=== PATIENT | male | born 1980 | race Caucasian/White ===

== ENCOUNTER → 2017-02-26 | Outpatient (CLI) | payer OTHER ==
--- NOTE | 2017-02-27 15:17 | CR ---
EXAM DATE: 02/26/17 PATIENT'S AGE: 36 Patient: AMARJIT POTTER Facility: [place], [place] Site . Site : 1980 Study: XRay Knee Left [id number]/27/2017 8:54:12 AM Ordering Physician: Enzo Slater Final Report: Left knee, four views INDICATION: Strain of unspecified muscles and tendons COMPARISON: None. FINDINGS: No visualized fracture. Alignments anatomic. Joint spaces unremarkable. IMPRESSION: 1. NEGATIVE STUDY. NO ACUTE INJURY TO LEFT KNEE. NO JOINT EFFUSION. Dictated by Orlin Abraham MD @ Feb 26 2017 9:29PM (Electronic Signature) Report Signed by Proxy. SANA
== END ==
LOC: MW.CHORTHO 07:41
PROVIDERS: ATTEND Physician Assistant
DX: S86.912A Strain of unspecified muscle(s) and tendon(s) at lower leg level, left leg, initial encounter (principal); I10 Essential (primary) hypertension
CPT/HCPCS: 36415; 73564-26-LT; 73564-LT; 80048; 80061; 93005

== ENCOUNTER 2017-07-08 07:06 | Day surgery (SDC) | payer OTHER ==
[~2017-07-08 07:06] MED LIST: Lactated Ringers 1,000 ML IV SCH; ceFAZolin 2 GM in Premix Bag 1 BAG IV SCH
[2017-07-08] MEDS ORDERED: Lidocaine 1% 20 ML MDV ONE (07:31)
[2017-07-08] MEDS ORDERED: Acetaminophen/HYDROcodone 325-5 MG Tab PO PRN (08:00)
[2017-07-08] MEDS ORDERED: fentaNYL 100 MCG/2 ML SDV ONE (08:04)
[2017-07-08] MEDS ORDERED: Midazolam 1 MG/ML 2 ML SDV ONE (08:04)
[2017-07-08] MEDS ORDERED: Propofol 200 MG/20 ML SDV ONE (08:04)
[2017-07-08] MEDS ORDERED: Lidocaine 2% 5 ML SDV ONE ×2 (08:04→08:06)
[2017-07-08] MEDS ORDERED: Ondansetron 4 MG/2 ML SDV ONE (08:12)
[2017-07-08] MEDS ORDERED: Succinylcholine/Normal Saline 200 MG/10 ML Syringe ONE (08:12)
[2017-07-08] MEDS ORDERED: Ketorolac 30 MG/ML SDV ONE (08:12)
--- NOTE | 2017-07-08 08:33 | PCM.PREANE ---
Preanesthetic Assessment - Procedure Proposed Procedure: Left knee arthroscopy and meniscectomy - Anesthesia/Transfusion/Family Hx Anesthesia History: No Prior Anesthesia Family History of Anesthesia Reaction: No Transfusion History: No Prior Transfusion(s) Intubation History: Unknown - Review of Systems General: Other (obesity; suggested sleep apnea without workup) Pulmonary: No Symptoms Cardiovascular: Other (hypertension treated with lisinopril and HCTZ (recent)) Gastrointestinal: No Symptoms - Physical Assessment NPO Status Date: 07/07/17 NPO Status Time: 21:30 O2 Sat by Pulse Oximetry: 99 Respiratory Rate: 18 Vital Signs: Last Vital Signs Temp 98.8 F 07/08/17 07:15 Pulse 86 07/08/17 07:15 Resp 18 07/08/17 07:15 BP 150/105 H 07/08/17 07:15 Pulse Ox 99 07/08/17 07:15 Height: 6 ft Weight: 307 lb ASA Class: 3 Mental Status: Alert & Oriented x3 Airway Class: Mallampati = 1 Dentition: Reports: Normal Dentition Thyro-Mental Finger Breadths: 3 (bearded) Mouth Opening Finger Breadths: 3 ROM/Head Extension: Full Lungs: Clear to Auscultation, Normal Respiratory Effort Cardiovascular: Regular Rate, Regular Rhythm, No Murmurs - Allergies Allergies/Adverse Reactions: Allergies Allergy/AdvReac Type Severity Reaction Status Date / Time No Known Allergies Allergy Verified 07/07/17 10:28 - Blood Blood Available: No Product(s) Available: None - Anesthesia Plan Pre-Op Medication Ordered: None - Acknowledgements Anesthesia Type Planned: General Anesthesia (LMA vs OET) Pt an Appropriate Candidate for the Planned Anesthesia: Yes Alternatives and Risks of Anesthesia Discussed w Pt/Guardian: Yes Pt/Guardian Understands and Agrees with Anesthesia Plan: Yes PreAnesthesia Questionnaire Other HEENT History: wears contacts Cardiovascular History: Reports: Hypertension Respiratory History: Reports: Other (See Below) Other Respiratory History: undiagnosed sleep apnea Endocrine/Metabolic History: Reports: Obesity/BMI 30+ - SUBSTANCE USE Smoking Status *Q: Never Smoker Recreational Drug Use History: No - HOME MEDS Home Medications: Home Meds Hydrochlorothiazide 12.5 mg PO DAILY 07/07/17 [History] Lisinopril [Prinivil] 20 mg PO DAILY 07/07/17 [History] - CURRENT (IN HOUSE) MEDS Current Meds: Current Medications Hydrocodone Bitart/Acetaminophen ([place] 325-5 Mg) 1 - 2 tab PO Q4H PRN PRN Reason: Pain Cefazolin Sodium/Dextrose 2 gm (/ Premix) 50 mls @ 100 mls/hr IV ONCALL JACINTO Lactated Ringer's (Ringers, Lactated) 1,000 mls @ 100 mls/hr IV ASDIRECTED [facility] Last Admin: 07/08/17 07:19 Dose: 100 mls/hr Discontinued Medications Fentanyl (Sublimaze) Confirm Administered Dose 200 mcg .ROUTE .STK-MED ONE Stop: 07/08/17 08:05 Ketorolac Tromethamine (Toradol) Confirm Administered Dose 60 mg .ROUTE .STK- MED ONE Stop: 07/08/17 08:13 Lidocaine (Xylocaine-Mpf 2%) Confirm Administered Dose 5 ml .ROUTE .STK-MED ONE Stop: 07/08/17 08:05 Lidocaine (Xylocaine-Mpf 2%) Confirm Administered Dose 5 ml .ROUTE .STK-MED ONE Stop: 07/08/17 08:07 Lidocaine HCl (Xylocaine 1%) Confirm Administered Dose 20 ml .ROUTE .STK-MED ONE Stop: 07/08/17 07:32 Midazolam HCl (Versed 1 Mg/Ml) Confirm Administered Dose 2 mg .ROUTE .STK-MED ONE Stop: 07/08/17 08:05 Ondansetron HCl (Zofran) Confirm Administered Dose 4 mg .ROUTE .STK-MED ONE Stop: 07/08/17 08:13 Propofol (Diprivan 20 Ml) Confirm Administered Dose 400 mg .ROUTE .STK-MED ONE Stop: 07/08/17 08:05 Succinylcholine Chloride (Succinylcholine In Ns Pf) Confirm Administered Dose 200 mg .ROUTE .STK-MED ONE Stop: 07/08/17 08:13
[2017-07-08] MEDS ORDERED: fentaNYL 250 MCG/5 ML SDV IVPUSH SCH (08:45)
[2017-07-08] MEDS ORDERED: Labetalol 100 MG/20 ML MDV ONE (09:04)
[2017-07-08] MEDS ORDERED: ePHEDrine 50 MG/ML SDV ONE (09:19)
--- NOTE | 2017-07-08 09:28 | PCM.OPNOTE ---
- General Post-Op/Procedure Note Date of Surgery/Procedure: 07/08/17 Operative Procedure(s): Left knee arthroscopy with PMM Post-Op Diagnosis: L knee medial meniscus tear, DJD left knee Anesthesia Technique: General ET Tube Primary Surgeon: Tashia Cotres Assembly Operator: Ceci Cevallos in mLs: 5 Condition: Good Free Text/Narrative:: tt=15 min #[id number]
--- NOTE | 2017-07-08 10:06 | PCM.POSTAN ---
POST ANESTHESIA ASSESSMENT - MENTAL STATUS Mental Status: Alert, Oriented - RESPIRATORY Respiratory Status: Respiratory Rate WNL, Airway Patent, O2 Saturation Stable - CARDIOVASCULAR CV Status: Pulse Rate WNL, Blood Pressure Stable - GASTROINTESTINAL GI Status: No Symptoms - PAIN Pain Score: 0 - POST OP HYDRATION Hydration Status: Adequate & Stable
--- NOTE | 2017-07-08 10:39 | PCM48HPAN ---
Post Anesthesia Note - EVALUATION WITHIN 48HRS OF ANESTHETIC Vital Signs in Normal Range: Yes Patient Participated in Evaluation: Yes Respiratory Function Stable: Yes Airway Patent: Yes Cardiovascular Function Stable: Yes Hydration Status Stable: Yes Pain Control Satisfactory: Yes Nausea and Vomiting Control Satisfactory: Yes Mental Status Recovered: Yes
--- NOTE | 2017-07-08 14:20 | OR ---
SURGEON: Tashia Cortes MD DATE OF PROCEDURE: 07/08/2017 PREOPERATIVE DIAGNOSIS: Left knee medial meniscus tear. POSTOPERATIVE DIAGNOSES: 1. Left knee medial meniscus tear. 2. Degenerative joint disease, left knee. PROCEDURE: Left knee arthroscopy with partial medial meniscectomy. LEGAL EXECUTIVE: Ceci Cevallos PA-C. ANESTHESIA: General. ESTIMATED BLOOD LOSS: 5 mL. TOURNIQUET TIME: 15 minutes. COMPLICATIONS: None. DVT PROPHYLAXIS: Not indicated. IMPLANTS USED: None. BRIEF HISTORY: Barry is a 36-year-old male, who has had complaint of progressive left knee pain. An MRI did show a tear of the medial meniscus. Due to his lack of response to conservative treatment, I did recommend surgical intervention. The risks and goals of the procedure were discussed with the patient and were documented preoperatively. He agreed to proceed. DESCRIPTION OF PROCEDURE: The patient was properly identified and brought to the operating room. He was transferred from the OR cart and placed on the operating table in supine position. General anesthesia was administered. After adequate anesthesia was obtained, a well-padded tourniquet was applied to the left lower extremity. The left lower extremity was then prepped in standard fashion using ChloraPrep solution. It was then sterilely draped. A time-out was performed to ensure correct site and procedure. Preoperative antibiotics were given. The surgical site had been marked preoperatively. An Esmarch was used to exsanguinate the left lower extremity and the tourniquet was inflated to 250 mmHg. A lateral portal arthrotomy was established. Blunt trocar and cannula were introduced into the suprapatellar pouch. Camera, inflow, and outflow were assembled. No significant synovitis was noted. The patellofemoral joint was visualized. Degenerative changes were noted along the undersurface of the patella. The patella appeared to track centrally. It then extended down the lateral and medial gutter. No loose bodies were identified. I then entered the medial compartment. A medial portal arthrotomy was established. A blunt probe was inserted. He did have a large flap of loose cartilage present along the medial femoral condyle, which did impede visualization. A 4.0 mm shaver was placed into the medial compartment and a medial femoral condyle chondroplasty was performed. 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 No further loose flaps were noted. I then probed the meniscus. He was found to have a small radial tear of the posterior horn of the meniscus. This was resected with a combination of biters and nitin. It was reprobed and found to be stable. The medial tibial plateau showed grade 1 to grade 2 degenerative changes only. I then entered the notch. Both the ACL and PCL were visualized and probed and found to be intact. I then entered the lateral compartment. Minor degenerative fraying was noted along the central portion of the lateral meniscus. The meniscus was probed and found to be stable. He did have evidence of grade 1 chondromalacia along the lateral femoral condyle as well as the lateral tibial plateau. I then re-entered the patellofemoral joint. A chondroplasty of the patella was performed. The cartilage showed evidence of grade 3 chondromalacia diffusely along the undersurface of the patella. Grade 2 chondromalacia was noted diffusely along the trochlear groove. No loose cartilage fragments were noted along the trochlea. Instruments were then removed from the knee. The portal sites were closed with 3-0 nylon. Lidocaine 1% was injected along the portal tracts. Xeroform gauze was placed over the wound and a bulky dressing was applied. Tourniquet was then deflated. He was awakened from his anesthetic and transferred back to the operating room cart. He was brought to recovery room in stable condition. All needle and sponge counts were correct. JESSICA / JACQUELINE /[id number]
== END 2017-07-08 10:45 | disposition home or self-care (01) ==
LOC: MW.SDS 07:06
PROVIDERS: ATTEND Orthopaedic Surgery
DX: S83.242A Other tear of medial meniscus, current injury, left knee, initial encounter (principal); M17.12 Unilateral primary osteoarthritis, left knee; M94.262 Chondromalacia, left knee; E66.9 Obesity, unspecified; I10 Essential (primary) hypertension; Z79.899 Other long term (current) drug therapy; Z68.41 Body mass index [BMI] 40.0-44.9, adult
CPT/HCPCS: 29881; 88304; J0690; J1885; J2250; J2405; J3010; J7120; 01400; J2704

== ENCOUNTER 2018-01-29 10:53 | Emergency (ER) | payer OTHER ==
--- NOTE | 2018-01-29 11:33 | EDM.PDOC ---
ED HPI GENERAL MEDICAL PROBLEM - General Chief Complaint: Lower Extremity Injury/Pain Stated Complaint: RT KNEE HURTS Time Seen by Provider: 01/29/18 10:55 Source of Information: Reports: Patient History Limitations: Reports: No Limitations - History of Present Illness INITIAL COMMENTS - FREE TEXT/NARRATIVE: HISTORY AND PHYSICAL: History of present illness: Patient is a 37-year-old male who presents to the emergency room with complaints of right knee pain. He states yesterday he was walking and slipped on the ice landing on his knee. Since that time he has had increased pain and "feeling like it's coming give out" with weightbearing and ambulation. He denies any previous knee injury or trauma. Denies any numbness or tingling to the affected extremity. He denies hitting his head or any loss of consciousness. Review of systems: As per history of present illness and below otherwise all systems reviewed and negative. Past medical history: As per history of present illness and as reviewed below otherwise noncontributory. Surgical history: As per history of present illness and as reviewed below otherwise noncontributory. Social history: No reported history of drug or alcohol abuse. Family history: As per history of present illness and as reviewed below otherwise noncontributory. Physical exam: General: Well-developed and well-nourished 37-year-old male. Alert and oriented. Nontoxic appearing and in no acute distress. HEENT: Atraumatic, normocephalic, pupils equal and reactive bilaterally, negative for conjunctival pallor or scleral icterus, mucous membranes moist, throat clear, neck supple, nontender, trachea midline. No drooling or trismus noted. No meningeal signs Lungs: Clear to auscultation, breath sounds equal bilaterally, chest nontender. Heart: S1S2, regular rate and rhythm without overt murmur Abdomen: Soft, nondistended, nontender. Negative for masses or hepatosplenomegaly. Negative for costovertebral tenderness. Pelvis: Stable nontender. Genitourinary: Deferred. Rectal: Deferred. Skin: Intact, warm, dry. No soft tissue swelling noted. No lesions or rashes noted. Extremities: Moves all extremities per self without difficulty or deficits. No knee instability noted. Full range of motion with active and passive to the affected extremity. Strong pedal pulse. Capillary refill less than 3 seconds. He is negative for cords or calf pain. Neurovascular unremarkable. Neuro: Awake, alert, oriented. Cranial nerves II through XII unremarkable. Cerebellum unremarkable. Motor and sensory unremarkable throughout. Exam nonfocal. Notes: Get an x-ray of the right knee. Given the patient's symptoms and history it does sound that this may be a tendon/ligament issue which will require orthopedic follow-up. I did share this with the patient and he is agreeable to plan of care. Knee xray shows no fracture or dislocation. There is trace suprapatellar joint fluid. Knee immobilizer and crutches. Encouraged patient to see Orthopedics next week for further evaluation. Patient is agreeable to plan of care. Script for Tramadol #15, NRF. Patient blood pressure remains elevated upon discharge. He states he has been out of his Lisinopril x 2-3 months and hasn't been to his PCP to get it refilled. I encourage the patient to stay and be evaluated and help better control his BP. He declines at this time. Will give him a limited about of his Lisinopril; patient promises to follow up with his PCP next week for BP management. Diagnostics: X-ray Therapeutics: Knee immobilizer, crutches Impression: Right knee injury Plan: 1. Use the knee immobilizer and crutches as directed. Please be non-weight bearing until you follow-up with the orthopedic provider 2. Rest, ice, elevate the affected extremity. You may use Tylenol and/or ibuprofen as needed for pain management. 3. Follow-up with orthopedics next week. Return to the ED as needed and as discussed. Definitive disposition and diagnosis as appropriate pending reevaluation and review of above. Duration: Day(s): Location: Reports: Upper Extremity, Right Right Knee Pain Score (Numeric/FACES): 5 - Related Data Allergies Allergy/AdvReac Type Severity Reaction Status Date / Time No Known Allergies Allergy Verified 01/29/18 11:09 Home Meds: Home Meds . [No Known Home Meds] 01/29/18 [History] Past Medical History - Past Health History Medical/Surgical History: Denies Medical/Surgical History Other HEENT History: wears contacts Cardiovascular History: Reports: Hypertension Respiratory History: Reports: Other (See Below) Other Respiratory History: undiagnosed sleep apnea Endocrine/Metabolic History: Reports: Obesity/BMI 30+ Social & Family History - Tobacco Use Smoking Status *Q: Never Smoker Second Hand Smoke Exposure: No - Caffeine Use Caffeine Use: Reports: None - Recreational Drug Use Recreational Drug Use: No Drug Use in Last 12 Months: No Review of Systems - Review of Systems Review Of Systems: ROS reveals no pertinent complaints other than HPI. ED EXAM, GENERAL - Physical Exam Exam: See Below (See dictation) Course - Vital Signs Last Recorded V/S: Last Vital Signs Temp 96.5 F 01/29/18 11:10 Pulse 103 H 01/29/18 12:37 Resp 18 01/29/18 12:37 BP 176/117 H 01/29/18 12:37 Pulse Ox 98 01/29/18 12:37 - Orders/Labs/Meds Orders: Active Orders 24 hr Category Date Time Status DME for Discharge [COMM] Stat Oth 01/29/18 12:20 Ordered Departure - Departure Time of Disposition: 12:26 Disposition: Home, Self-Care 01 Clinical Impression: Right knee injury Qualifiers: Encounter type: initial encounter Qualified Code(s): S89.91XA - Unspecified injury of right lower leg, initial encounter - Discharge Information Instructions: Knee Sprain, Adult, [id number] Referrals: PCP,None [Primary Care Provider] - Forms: ED Department Discharge Additional Instructions: The following information is given to patients seen in the emergency department who are being discharged to home. This information is to outline your options for follow-up care. We provide all patients seen in our emergency department with a follow-up referral. The need for follow-up, as well as the timing and circumstances, are variable depending upon the specifics of your emergency department visit. If you don't have a primary care physician on staff, we will provide you with a referral. We always advise you to contact your personal physician following an emergency department visit to inform them of the circumstance of the visit and for follow-up with them and/or the need for any referrals to a consulting specialist. The emergency department will also refer you to a specialist when appropriate. This referral assures that you have the opportunity for follow-up care with a specialist. All of these measure are taken in an effort to provide you with optimal care, which includes your follow-up. Under all circumstances we always encourage you to contact your private physician who remains a resource for coordinating your care. When calling for follow-up care, please make the office aware that this follow-up is from your recent emergency room visit. If for any reason you are refused follow-up, please contact the [facility] Emergency Department at and asked to speak to the emergency department charge nurse. [facility] Primary Care [address], [place] [address] [facility] Specialty Care - Orthopedic Clinic Professional Building [address] [place] [address], [address] [place] [address] 1. Use the knee immobilizer and crutches as directed. Please be non-weight bearing until you follow-up with the orthopedic provider 2. Rest, ice, elevate the affected extremity. You may use Tylenol and/or ibuprofen as needed for pain management. Tramadol as needed for moderate to severe pain. May cause drowsiness, so do not take while driving or needing to be functioning outside the house. 3. Follow-up with orthopedics next week. Return to the ED as needed and as discussed. - My Orders Last 24 Hours: My Active Orders 01/29/18 12:20 DME for Discharge [COMM] Stat - Assessment/Plan Last 24 Hours: My Active Orders 01/29/18 12:20 DME for Discharge [COMM] Stat
--- NOTE | 2018-01-29 12:19 | CR ---
EXAMINATION: Right knee HISTORY: Pain COMPARISON: MRI dated 05/01/2017 TECHNIQUE: 3 views FINDINGS/IMPRESSION: There is no acute osseous abnormality, dislocation, or fracture. Trace suprapate llar joint fluid. Joint spaces appear preserved.
== END 2018-01-29 12:42 | disposition home or self-care (01) ==
LOC: MW.ED 10:53
DX: S89.91XA Unspecified injury of right lower leg, initial encounter (principal); I10 Essential (primary) hypertension; W00.2XXA Other fall from one level to another due to ice and snow, initial encounter
CPT/HCPCS: 73562-26-RT; 73562-RT; 99283

== ENCOUNTER 2018-05-19 07:22 | Day surgery (SDC) | payer OTHER ==
[~2018-05-19 07:22] MED LIST changes: -ceFAZolin 2 GM in Premix Bag 1 BAG IV SCH
[2018-05-19] MEDS ORDERED: Bupivacaine 0.25% 10 ML SDV ONE (07:53)
[2018-05-19] MEDS ORDERED: hydrALAZINE 20 MG/ML SDV IVPUSH ONE (07:57)
[2018-05-19] MEDS ORDERED: Acetaminophen/HYDROcodone 325-10 MG Tab PO PRN (08:00)
[2018-05-19] MEDS ORDERED: Ketorolac 10 MG Tab PO PRN (08:00)
[2018-05-19] MEDS ORDERED: ceFAZolin 2 GM in Premix Bag 1 BAG IV SCH (08:00)
--- NOTE | 2018-05-19 08:01 | PCM.PREANE ---
Preanesthetic Assessment - Anesthesia/Transfusion/Family Hx Anesthesia History: Prior Anesthesia Without Reaction Transfusion History: No Prior Transfusion(s) Intubation History: Unknown - Review of Systems General: No Symptoms Pulmonary: No Symptoms Cardiovascular: Other (HTN, pt has been off lisinopril) Gastrointestinal: No Symptoms Neurological: No Symptoms Other: Reports: None - Physical Assessment Height: 6 ft Weight: 145.15 kg ASA Class: 2 Mental Status: Alert & Oriented x3 Airway Class: Mallampati = 1 Dentition: Reports: Normal Dentition Thyro-Mental Finger Breadths: 3 Mouth Opening Finger Breadths: 3 ROM/Head Extension: Full Lungs: Clear to Auscultation, Normal Respiratory Effort Cardiovascular: Regular Rate, Regular Rhythm - Allergies Allergies/Adverse Reactions: Allergies Allergy/AdvReac Type Severity Reaction Status Date / Time amoxicillin Allergy Hives Verified 05/13/18 08:03 - Acknowledgements Anesthesia Type Planned: General Anesthesia (LMA) Pt an Appropriate Candidate for the Planned Anesthesia: Yes Alternatives and Risks of Anesthesia Discussed w Pt/Guardian: Yes Pt/Guardian Understands and Agrees with Anesthesia Plan: Yes PreAnesthesia Questionnaire - Past Health History Medical/Surgical History: Denies Medical/Surgical History HEENT History: Reports: Other (See Below) Other HEENT History: wears contacts Cardiovascular History: Reports: Hypertension Respiratory History: Reports: Other (See Below) Other Respiratory History: undiagnosed sleep apnea Gastrointestinal History: Reports: None Genitourinary History: Reports: None Musculoskeletal History: Reports: Other (See Below) (Rt Knee Pain) Neurological History: Reports: None Psychiatric History: Reports: None Endocrine/Metabolic History: Reports: Obesity/BMI 30+ Other Endocrine/Metabolic History: states hyperthyroidism in the past that was treated - nothing currently Hematologic History: Reports: None Immunologic History: Reports: None Oncologic (Cancer) History: Reports: None Dermatologic History: Reports: None - Past Surgical History Head Surgeries/Procedures: Reports: None Musculoskeletal Surgical History: Reports: Arthroscopic Knee Other Musculoskeletal Surgeries/Procedures:: left knee arthroscopy - SUBSTANCE USE Smoking Status *Q: Never Smoker Recreational Drug Use History: No - HOME MEDS Home Medications: Home Meds hydroCHLOROthiazide [Hydrochlorothiazide] 12.5 mg PO DAILY 05/13/18 [History] - CURRENT (IN HOUSE) MEDS Current Meds: Current Medications Hydrocodone Bitart/Acetaminophen ([place] 325-10 Mg) 1 - 2 tab PO Q4H PRN PRN Reason: Pain Cefazolin Sodium/Dextrose 2 gm (/ Premix) 50 mls @ 100 mls/hr IV ONCALL JACINTO Lactated Ringer's (Ringers, Lactated) 1,000 mls @ 100 mls/hr IV ASDIRECTED JACINTO Ketorolac Tromethamine (Toradol) 10 mg PO Q6H PRN PRN Reason: Pain Stop: 05/24/18 08:01 Discontinued Medications Bupivacaine HCl (Sensorcaine-Mpf 0.25%) Confirm Administered Dose 20 ml .ROUTE .STK-MED ONE Stop: 05/19/18 07:54
[2018-05-19] MEDS ORDERED: Labetalol 100 MG/20 ML MDV IVPUSH ONE ×2 (08:42→12:53)
--- NOTE | 2018-05-19 09:03 | PCM.OPNOTE ---
- General Post-Op/Procedure Note Date of Surgery/Procedure: 05/19/18 Operative Procedure(s): R knee arthroscopy with arthroscopically aided ACL reconstruction using allograft Post-Op Diagnosis: R knee ACL tear Anesthesia Technique: General ET Tube Primary Surgeon: Tashia Cortes Repair Armature Winder Helper: Nohemy Giraldo in mLs: 10 Condition: Good Free Text/Narrative:: fq=[id number] min #[id number]
[2018-05-19] MEDS ORDERED: fentaNYL 250 MCG/5 ML SDV ONE (09:04)
[2018-05-19] MEDS ORDERED: Dexamethasone 4 MG/ML 5 ML MDV ONE (09:05)
[2018-05-19] MEDS ORDERED: Ondansetron 4 MG/2 ML SDV ONE (09:05)
[2018-05-19] MEDS ORDERED: Propofol 200 MG/20 ML SDV ONE (09:05)
[2018-05-19] MEDS ORDERED: Ketorolac 30 MG/ML SDV ONE (09:05)
[2018-05-19] MEDS ORDERED: HYDROmorphone 2 MG/ML SDV ONE (11:54)
[2018-05-19] MEDS ORDERED: HYDROmorphone 2 MG/ML SDV IVPUSH ONE (12:31)
--- NOTE | 2018-05-19 12:56 | PCM.POSTAN ---
POST ANESTHESIA ASSESSMENT - MENTAL STATUS Mental Status: Alert, Oriented - VITAL SIGNS Pulse Rate: 92 SaO2: 97 Resp Rate: 21 Blood Pressure: 129/91 (tx with additional dose of labetolol) - RESPIRATORY Respiratory Status: Respiratory Rate WNL, Airway Patent, O2 Saturation Stable - CARDIOVASCULAR CV Status: Pulse Rate WNL, Blood Pressure Stable - GASTROINTESTINAL GI Status: No Symptoms - PAIN Pain Score: 4 (comfortable) - POST OP HYDRATION Hydration Status: Adequate & Stable
--- NOTE | 2018-05-19 13:22 | OR ---
SURGEON: Tashia Cortes MD DATE OF PROCEDURE: 05/19/2018 PREOPERATIVE DIAGNOSIS: Right knee anterior cruciate ligament tear. POSTOPERATIVE DIAGNOSIS: Right knee anterior cruciate ligament tear. PROCEDURE: Right knee arthroscopy with arthroscopically aided anterior cruciate ligament reconstruction using allograft. SCHEDULING SPECIALIST: Nohemy Giraldo PA-C. ANESTHESIA: General. ESTIMATED BLOOD LOSS: 10 mL. TOURNIQUET TIME: 102 minutes. COMPLICATIONS: None. DVT PROPHYLAXIS: PAS boot to the nonoperative leg. IMPLANTS USED: See OR record. BRIEF HISTORY: Barry is a 37-year-old male, who injured his right knee. An MRI did confirm a tear of the anterior cruciate ligament. He continued to be bothered by recurrent instability. Due to his lack of response to conservative treatment, I did recommend surgical intervention. The risks and goals of procedure were discussed with the patient and were documented preoperatively. He agreed to proceed. DESCRIPTION OF PROCEDURE: The patient was properly identified and brought to the operating room. He was transferred from the OR cart and placed on the operating table in supine position. General anesthesia was administered. After adequate anesthesia was obtained, a well-padded tourniquet was applied to the right lower extremity. The right lower extremity was then prepped in standard fashion using ChloraPrep solution. It was then sterilely draped. A time-out was performed to ensure correct site and procedure. Preoperative antibiotics were given. The surgical site had been marked preoperatively. An Esmarch was used to exsanguinate the right lower extremity and the tourniquet was inflated to 250 mmHg. A lateral portal arthrotomy was established. Blunt trocar and cannula were introduced into the suprapatellar pouch. Camera, inflow, and outflow were assembled. No significant synovitis was noted. The patellofemoral joint was visualized. He did have a fissure along the central portion of the undersurface of the patella, which showed grade 2 chondromalacia. No degenerative changes were noted along the trochlea. The patella appeared to track centrally. I then extended down the lateral and medial gutter. No loose bodies were identified. I then entered the medial compartment. A medial portal arthrotomy was established. A blunt probe was inserted. He had an area of mild grade 2 chondromalacia along the lateral aspect of the medial femoral condyle. The cartilage did appear somewhat loose and this was resected back to a stable remnant. The medial tibial plateau did not show significant degenerative findings. The meniscus was extensively probed and found to be intact. I then entered the notch. The ACL was visualized. It was not attached to the lateral femoral condyle. It appeared to be scarred to the PCL. PCL appeared intact. I then entered the lateral compartment. Softening was noted along the lateral tibial plateau consistent with grade 1 chondromalacia. No significant degenerative changes were noted along the lateral femoral condyle. Meniscus was extensively probed and found to be intact. I then re-entered the notch. A portion of the ACL was removed from its attachment to the PCL. The soft tissue overlying the lateral wall was cleared off soft tissue. A 5.0 mm haydee was used to perform a notchplasty. I did use a large curved curette to clear the soft tissue from the posterior aspect of the femur to confirm that we were posterior enough. The soft tissue around the insertion site onto the tibia was also cleared off soft tissue. The graft was prepared on the back table in the usual fashion. An incision was made over the medial aspect of the proximal tibia. The subcutaneous tissues were dissected down to the fascia. The fascial layer was then elevated using a [place] elevator. The tibial guide was then inserted into the joint. The guide was placed approximately 7 mm anterior to the PCL, which was parallel to the anterior horn of the lateral meniscus. The pin was inserted from the proximal tibia into the joint. I felt that the pin position was acceptable. The graft did measure 9 mm and 9 mm reamer was used to over ream the guide pin. The posterior aspect of the tibial tunnel was smoothed with a rasp. The shaver was introduced in through the tibial tunnel to remove any excess soft tissue and bony debris. A cannula was then placed to assist with water management. We then turned our attention to the femur. The switch cutter guide was then placed. The position of the femoral tunnel was placed in an inferior and posterior position. The switch cutter was then placed. Approximately 40 mm tunnel was then drilled in a retrograde fashion. The shaver was again used to clear the soft tissues and the tunnel was visualized in its entirety. Although, the tunnel was quite posteriorly, we did have an intact posterior wall. The graft was then inserted through the medial portal. We initially used an AperFix device. This was placed into the femoral tunnel and was gently malleted into position. The AperFix was then deployed. As we removed the guide from AperFix, the AperFix did pull back into the joint. We removed the graft along with AperFix fixation and placed the graft onto a new AperFix device. This was again passed in a similar fashion. Unfortunately, we had a similar outcome where AperFix did not deploy adequately and pulled back into the joint. I elected to proceed with a toggle lock fixation device. The graft was then threaded onto the toggle lock device. The suture ends were shuttled through the drilled femoral tunnel and out the lateral side. The toggle lock button was then pulled through the femur. Once it deployed over the lateral cortex of the femur, the distal end of the graft was pulled, locking the toggle lock device. C-arm imaging confirmed acceptable position of the toggle lock on the cortex. It was then visualized as it was shuttled into the femur. We had approximately 40 mm of graft that entered the femur. Tension was then held on the distal end of the graft and the knee was taken through range of motion under direct visualization. There appeared to be no impingement of the femoral condyle or PCL on the graft. There was no evidence of pistoning. The leg was then brought into a fully extended position. The graft limbs were tightened onto the tibial fixation device. These were adequately tensioned with the knee in full extension. The tibial fixation device was then malleted into position. This provided good compression of the distal limbs of the graft. A Rosalino exam was then performed. There was no anterior translation of the tibia. The arthroscopy camera was reinserted and the graft was visualized and probed and found to be stable. He was taken through a range of motion. I was able to get him to 90 degrees with no significant tension on the graft. The leg was then brought back into full extension. The tourniquet was deflated at 102 minutes. The ends of the graft were trimmed. The soft tissue overlying the tibial tunnel was sewed with 2-0 Vicryl. The subcutaneous tissues were closed with 2-0 Vicryl. He did have extensive tattooing on his lower extremity, and care was taken to reapproximate the tattoo edges. The skin was closed with a running 4-0 Monocryl suture. Steri-Strips and Benzoin were placed. Arthroscopy portals were closed with a 3-0 nylon. 0.5% Marcaine was injected along the incision site at the completion of the case. Xeroform gauze was placed over the wound and a bulky dressing was applied. He was placed into a hinged knee brace locked in full extension. He was awakened from his anesthetic and transferred back to the operating room cart. He was brought to recovery room in stable condition. All needle and sponge counts were correct. JESSICA / JACQUELINE /[id number] [employer]
--- NOTE | 2018-05-19 15:03 | PCM48HPAN ---
Post Anesthesia Note - EVALUATION WITHIN 48HRS OF ANESTHETIC Vital Signs in Normal Range: Yes Patient Participated in Evaluation: Yes Respiratory Function Stable: Yes Airway Patent: Yes Cardiovascular Function Stable: Yes Hydration Status Stable: Yes Pain Control Satisfactory: Yes Nausea and Vomiting Control Satisfactory: Yes Mental Status Recovered: Yes Pulse Rate: 92 Resp Rate: 21 Blood Pressure: 125/72 (tx with additional dose of labetolol) - COMMENTS/OBSERVATIONS Free Text/Narrative:: BP did come down with treatment with labetolol. He is encouraged to see his PMD and take his bloood pressure medicine
--- NOTE | 2018-05-19 15:36 | CR ---
EXAMINATION: Right knee HISTORY: ACL reconstruction COMPARISON: MRI dated 02/15/2018 TECHNIQUE: Single view FINDINGS/IMPRESSION: Single operative film demonstrates postsurgical changes secondary to ACR repair.
== END 2018-05-19 15:05 | disposition home or self-care (01) ==
LOC: MW.SDS 07:22
PROVIDERS: ATTEND Orthopaedic Surgery
DX: S83.511A Sprain of anterior cruciate ligament of right knee, initial encounter (principal); M94.261 Chondromalacia, right knee; I10 Essential (primary) hypertension; E66.9 Obesity, unspecified; Z68.41 Body mass index [BMI] 40.0-44.9, adult; Z79.899 Other long term (current) drug therapy; Z87.891 Personal history of nicotine dependence; Z88.0 Allergy status to penicillin; X58.XXXA Exposure to other specified factors, initial encounter
CPT/HCPCS: 29888; 76000; A9270; J0360; J1100; J1170; J1885; J2405; J2704; J3010; J3490; J7120; 88304

== ENCOUNTER 2021-07-07 19:12 | Observation (INO) | payer BC ==
[2021-07-07] MEDS ORDERED: Sodium Chloride 0.9% 10 ML Syringe FLUSH PRN (19:38)
[2021-07-07] MEDS ORDERED: Sodium Chloride 0.9% 2.5 ML Syringe FLUSH PRN (19:38)
[2021-07-07 19:58] LABS: BLOOD UREA NITROGEN,BUN 18 mg/dL (7.0-18.0); CARBON DIOXIDE,CO2 29.3 mmol/L (21.0-32.0); CHLORIDE,CL 101 mmol/L (98-107); GLUCOSE RANDOM 96 mg/dL (74-106); POTASSIUM,K 4.5 mmol/L (3.5-5.1); SODIUM,NA 139 mmol/L (136-148)
--- NOTE | 2021-07-07 19:58 | EDM.PDOC ---
ED HPI GENERAL MEDICAL PROBLEM - General Chief Complaint: Chest Pain Stated Complaint: SHORTNESS OF BREATH, CHEST PAIN, DIZZINESS Time Seen by Provider: 07/07/21 19:41 - History of Present Illness INITIAL COMMENTS - FREE TEXT/NARRATIVE: HISTORY AND PHYSICAL: History of present illness: This is a 40-year-old gentleman with a history significant for obesity, family history for CAD, hypertension, obstructive sleep apnea, negative for diabetes, tobacco who presents ER today secondary to intermittent episodes of chest discomfort for last 2 to 3 hours. Patient reports that the sensation he felt within the left side of his chest and describes a tightness/squeezing sensation has been on and off. Patient reports no improvement with rest but he does report that it does get exacerbated when he stands up and starts to walk. Beau bedolla denies any nausea or vomiting. Patient has any pain rating down his arms or back. Patient reports he does have some shortness of breath and diaphoresis with the discomfort. Patient reports that he felt dizzy when the pain initially came on about and felt like he might pass out. Patient denies any recent fevers, shakes, chills, nausea, vomiting, diarrhea, dysuria, frequency, urgency, abdominal pain. Patient denies any Covid exposures or concerns. Patient reports no change with pain with deep inspiration or coughing. Review of systems: As per history of present illness and below otherwise all systems reviewed and negative. Past medical history: As per history of present illness and as reviewed below otherwise noncontributory. Surgical history: As per history of present illness and as reviewed below otherwise noncontributory. Social history: No reported history of drug abuse. Family history: As per history of present illness and as reviewed below otherwise noncontrib utory. Physical exam: This patient was seen and evaluated during the 2019 SARS-CoV-2 novel coronavirus pandemic period. Community viral transmission is ongoing at time of this encounter and the emergency department is operating under pandemic response procedures. Constitutional: Patient is oriented to person, place, and time. Appears well- developed and well-nourished. No distress. HEENT: Moist mucous membranes Head: Normocephalic and atraumatic Eyes: Right eye exhibits no discharge. Left eye exhibits no discharge. No scleral icterus Neck: Normal range of motion. No tracheal deviation present. Cardiovascular: Normal rate and regular rhythm. Pulmonary: Effort normal, no respiratory distress. Abdominal: No distention Musculoskeletal: Normal range of motion Neurologic: Alert and oriented to person, place and time. Skin: [place], warm and dry. Psychiatric: Normal mood and affect. Behavior is normal. Judgment and thought content normal. Nursing note and vital signs have been reviewed Diagnostics: EKG: July 07, 2021 at 7:13 PM As interpreted by ER physician: Perla: Nonspecific ST-T wave abnormalities Normal axis No evidence of ST elevation VA Normal sinus rhythm heart rate of 92 Chest Xray: Normal cardiac silhouette No infiltrates or effusions identified. No PTX No evidence of acute bony fracture. As interpreted by ER MD: [employer]: [] Assessment and plan: This is a 40-year-old gentleman who presents ER today secondary to intermittent episodes of chest pain that started approximately 2 hours ago that he describes as a tightness in his chest. Patient reports that the pain is associated with shortness of breath and diaphoresis and dizziness with near syncope. Patient ports that the discomfort is exacerbated with ambulation and standing. Patient reports no change with deep inspiration, cough, rest. Patient denies any prior history of CAD, cardiac work-up, hospital admissions for chest pain. Patient will have a CBC, CMP, troponin, D-dimer, BNP as well as a chest x-ray performed. Patient's EKG does not reveal any evidence of acute ischemia. Patient currently is pain-free while he is at rest. Definitive disposition and diagnosis as appropriate pending reevaluation and review of above. Chest Pain Score (Numeric/FACES): 5 - Related Data Allergies Allergy/AdvReac Type Severity Reaction Status Date / Time amoxicillin Allergy Hives Verified 05/13/18 08:03 penicillin G Allergy Hives Verified 07/07/21 19:19 Home Meds: Home Meds lisinopriL [Lisinopril] 1 dose PO ASDIRECTED 07/07/21 [History] Levothyroxine Sodium [Euthyrox] 50 mcg PO DAILY #30 tablet 07/08/21 [Rx] Past Medical History - Past Health History Medical/Surgical History: Denies Medical/Surgical History HEENT History: Reports: Other (See Below) Other HEENT History: wears contacts Cardiovascular History: Reports: Hypertension Respiratory History: Reports: Other (See Below) Other Respiratory History: undiagnosed sleep apnea Gastrointestinal History: Reports: None Genitourinary History: Reports: None Musculoskeletal History: Reports: Other (See Below) Neurological History: Reports: None Psychiatric History: Reports: None Endocrine/Metabolic History: Reports: Obesity/BMI 30+ Other Endocrine/Metabolic History: states hyperthyroidism in the past that was treated - nothing currently Hematologic History: Reports: None Immunologic History: Reports: None Oncologic (Cancer) History: Reports: None Dermatologic History: Reports: None - Infectious Disease History Infectious Disease History: Reports: Chicken Pox, Novel Coronavirus - Past Surgical History Head Surgeries/Procedures: Reports: None Musculoskeletal Surgical History: Reports: Arthroscopic Knee Other Musculoskeletal Surgeries/Procedures:: left knee arthroscopy Social & Family History - Family History Family Medical History: No Pertinent Family History - Tobacco Use Tobacco Use Status *Q: Never Tobacco User - Caffeine Use Caffeine Use: Reports: Coffee, Energy Drinks, Soda - Recreational Drug Use Recreational Drug Use: No ED ROS GENERAL - Review of Systems Review Of Systems: See Below ED EXAM, GENERAL - Physical Exam Exam: See Below Course - Vital Signs Last Recorded V/S: Last Vital Signs Temp 97.1 F 07/08/21 08:00 Pulse 73 07/08/21 08:00 Resp 16 07/08/21 08:00 BP 151/100 H 07/08/21 08:00 Pulse Ox 98 07/08/21 08:00 - Orders/Labs/Meds Orders: Active Orders 24 hr Category Date Time Status Saline Lock Insert [OM.PC] Stat Oth 07/07/21 19:38 Ordered Labs: Laboratory Tests 07/07/21 07/07/21 07/07/21 Range/Units 19:25 19:25 19:25 WBC 13.55 H (4.0-11.0) K/uL RBC 5.13 (4.50-5.90) M/uL Hgb 14.6 (13.0-17.0) g/dL Hct 44.4 (38.0-50.0) % MCV 86.5 (80.0-98.0) fL MCH 28.5 (27.0-32.0) pg MCHC 32.9 (31.0-37.0) g/dL RDW Std Deviation 46.3 (28.0-62.0) fl RDW Coeff of Gabby 15 (11.0-15.0) % Plt Count 353 (150-400) K/uL MPV 9.30 (7.40-12.00) fL Neut % (Auto) 76.4 (48.0-80.0) % Lymph % (Auto) 16.2 (16.0-40.0) % [place] % (Auto) 5.7 (0.0-15.0) % Eos % (Auto) 1.5 (0.0-7.0) % Baso % (Auto) 0.2 (0.0-1.5) % Neut # (Auto) 10.4 H (1.4-5.7) K/uL Lymph # (Auto) 2.2 (0.6-2.4) K/uL [place] # (Auto) 0.8 (0.0-0.8) K/uL Eos # (Auto) 0.2 (0.0-0.7) K/uL Baso # (Auto) 0.0 (0.0-0.1) K/uL Nucleated RBC % 0.0 /100WBC Nucleated RBCs # 0 K/uL D-Dimer, Quantitative 0.41 (0.0-0.50) mg/L FEU Sodium 139 (136-148) mmol/L Potassium 4.5 (3.5-5.1) mmol/L Chloride 101 (98-107) mmol/L Carbon Dioxide 29.3 (21.0-32.0) mmol/L BUN 18 (7.0-18.0) mg/dL Creatinine 1.1 (0.8-1.3) mg/dL Est Cr Clr Drug Dosing 98.96 mL/min Estimated GFR (MDRD) > 60.0 ml/min Glucose 96 (74-106) mg/dL Calcium 8.9 (8.5-10.1) mg/dL Total Bilirubin 0.4 (0.2-1.0) mg/dL AST 33 (15-37) IU/L ALT 64 H (14-63) IU/L Alkaline Phosphatase 116 (46-116) U/L Troponin I < 0.050 (0.000-0.056) ng/mL B-Natriuretic Peptide (<100) PG/ML Total Protein 8.0 (6.4-8.2) g/dL Albumin 4.0 (3.4-5.0) g/dL Globulin 4.0 (2.6-4.0) g/dL Albumin/Globulin Ratio 1.0 (0.9-1.6) SARS-CoV-2 RNA (ROXANNE) (NEGATIVE) 07/07/21 07/07/21 Range/Units 19:25 19:59 WBC (4.0-11.0) K/uL RBC (4.50-5.90) M/uL Hgb (13.0-17.0) g/dL Hct (38.0-50.0) % MCV (80.0-98.0) fL MCH (27.0-32.0) pg MCHC (31.0-37.0) g/dL RDW Std Deviation (28.0-62.0) fl RDW Coeff of Gabby (11.0-15.0) % Plt Count (150-400) K/uL MPV (7.40-12.00) fL Neut % (Auto) (48.0-80.0) % Lymph % (Auto) (16.0-40.0) % [place] % (Auto) (0.0-15.0) % Eos % (Auto) (0.0-7.0) % Baso % (Auto) (0.0-1.5) % Neut # (Auto) (1.4-5.7) K/uL Lymph # (Auto) (0.6-2.4) K/uL [place] # (Auto) (0.0-0.8) K/uL Eos # (Auto) (0.0-0.7) K/uL Baso # (Auto) (0.0-0.1) K/uL Nucleated RBC % /100WBC Nucleated RBCs # K/uL D-Dimer, Quantitative (0.0-0.50) mg/L FEU Sodium (136-148) mmol/L Potassium (3.5-5.1) mmol/L Chloride (98-107) mmol/L Carbon Dioxide (21.0-32.0) mmol/L BUN (7.0-18.0) mg/dL Creatinine (0.8-1.3) mg/dL Est Cr Clr Drug Dosing mL/min Estimated GFR (MDRD) ml/min Glucose (74-106) mg/dL Calcium (8.5-10.1) mg/dL Total Bilirubin (0.2-1.0) mg/dL AST (15-37) IU/L ALT (14-63) IU/L Alkaline Phosphatase (46-116) U/L Troponin I (0.000-0.056) ng/mL B-Natriuretic Peptide 6 (<100) PG/ML Total Protein (6.4-8.2) g/dL Albumin (3.4-5.0) g/dL Globulin (2.6-4.0) g/dL Albumin/Globulin Ratio (0.9-1.6) SARS-CoV-2 RNA (ROXANNE) NEGATIVE (NEGATIVE) Meds: Medications Discontinued Medications Generic Name Dose Route Start Last Admin Trade Name Freq PRN Reason Stop Dose Admin Sodium Chloride 10 ml 07/07/21 19:38 07/07/21 20:11 Sodium Chloride 0.9% 10 Ml Syringe FLUSH 10 ml ASDIRECTED PRN Administration Keep Vein Open Sodium Chloride 2.5 ml 07/07/21 19:38 07/07/21 20:12 Sodium Chloride 0.9% 2.5 Ml Syringe FLUSH 2.5 ml ASDIRECTED PRN Administration Keep Vein Open Departure - Departure Time of Disposition: 21:00 Disposition: Admitted As Inpatient 67 Condition: Good Clinical Impression: Acute coronary syndrome - Discharge Information Sepsis Event Note (ED) - Evaluation Sepsis Screening Result: No Definite Risk - My Orders Last 24 Hours: My Active Orders 07/07/21 19:38 Saline Lock Insert [OM.PC] Stat - Assessment/Plan Last 24 Hours: My Active Orders 07/07/21 19:38 Saline Lock Insert [OM.PC] Stat
--- NOTE | 2021-07-07 23:16 | CR ---
INDICATION: chest pain CHEST, AP VIEWS AP radiographs of the chest were performed. Comparison: No previous studies are currently available for comparison. The lungs appear clear and no pleural effusions are identified. The cardiomediastinal silhouette and pulmonary vasculature appear normal, as do the visualized bones. IMPRESSION: No acute intrathoracic abnormality identified. ANAI RODRÍGUEZ MD [facility] Dictated by: Drew Rodríguez MD @ 07/07/2021 23:14:59 (Electronically Signed)
[2021-07-08] MEDS ORDERED: Lisinopril 5 MG Tab PO SCH (00:15)
--- NOTE | 2021-07-08 00:16 | PCM.HP.2 ---
H&P History of Present Illness - General Date of Service: 07/08/21 Admit Problem/Dx: Admission Diagnosis/Problem Admission Diagnosis/Problem Acute coronary syndrome - History of Present Illness Initial Comments - Free Text/Narative: 40 yo male with pmh of hypertension, hypothyroidism who presents with chest pain. Patient has three hours of substernal chest pain, with shortness of breath, and dizziness. The dizziness mainly occured when standing up quickly. In the ED patient had EKG and troponin which showed no signs of acute ischemia. Chest Pain Score (Numeric/FACES): 5 - Related Data Allergies/Adverse Reactions: Allergies Allergy/AdvReac Type Severity Reaction Status Date / Time amoxicillin Allergy Hives Verified 05/13/18 08:03 penicillin G Allergy Hives Verified 07/07/21 19:19 Home Medications: Home Meds RX: lisinopriL [Lisinopril] 1 dose PO ASDIRECTED 07/07/21 [History] Levothyroxine Sodium [Euthyrox] 50 mcg PO DAILY #30 tablet 07/08/21 [Rx] Past Medical History - Past Health History Medical/Surgical History: Denies Medical/Surgical History HEENT History: Reports: Other (See Below) Other HEENT History: wears contacts Cardiovascular History: Reports: Hypertension Respiratory History: Reports: Other (See Below) Other Respiratory History: undiagnosed sleep apnea Gastrointestinal History: Reports: None Genitourinary History: Reports: None Musculoskeletal History: Reports: Other (See Below) Neurological History: Reports: None Psychiatric History: Reports: None Endocrine/Metabolic History: Reports: Obesity/BMI 30+ Other Endocrine/Metabolic History: states hyperthyroidism in the past that was treated - nothing currently Hematologic History: Reports: None Immunologic History: Reports: None Oncologic (Cancer) History: Reports: None Dermatologic History: Reports: None - Infectious Disease History Infectious Disease History: Reports: Chicken Pox, Novel Coronavirus, Other (See Below) Other Infectious Disease History: COVID in November 2020 - Past Surgical History Head Surgeries/Procedures: Reports: None Cardiovascular Surgical History: Reports: None Respiratory Surgical History: Reports: None GI Surgical History: Reports: None Endocrine Surgical History: Reports: None Musculoskeletal Surgical History: Reports: Arthroscopic Knee Other Musculoskeletal Surgeries/Procedures:: left knee arthroscopy, right knee ACL repair. Social & Family History - Family History Family Medical History: No Pertinent Family History HEENT: Reports: Glaucoma Cardiac: Reports: Hypertension, [place], Pacemaker, Prior Cardiac Arrest Respiratory: Reports: Sleep Apnea Musculoskeletal: Reports: Arthritis, RA Neurological: Reports: Alzheimers Disease, Migraines Oncologic: Reports: Breast, Cervix, Lung - Tobacco Use Tobacco Use Status *Q: Former Tobacco User Years of Tobacco use: 5 Packs/Tins Daily: 1 Used Tobacco, but Quit: Yes Month/Year Tobacco Last Used: 2008 - Caffeine Use Caffeine Use: Reports: Coffee Caffeine Use Comment: 1 cup/day - Recreational Drug Use Recreational Drug Use: No H&P Review of Systems - Review of Systems: Review Of Systems: Comprehensive ROS is negative, except as noted in HPI. Exam - Exam Exam: See Below - Vital Signs Vital Signs: Last Vital Signs Temp 36.8 C 07/07/21 22:16 Pulse 78 07/07/21 22:16 Resp 15 07/07/21 22:16 BP 137/85 07/07/21 22:16 Pulse Ox 94 L 07/07/21 22:16 Weight: 183.705 kg - Exam General: Alert, Oriented HEENT: Mucosa Moist & [place] Neck: Supple Lungs: Clear to Auscultation, Normal Respiratory Effort Cardiovascular: Regular Rate, Regular Rhythm GI/Abdominal Exam: Normal Bowel Sounds, Soft, Non-Tender Extremities: Non-Tender, No Pedal Edema Skin: Warm, Dry, Intact Neurological: Cranial Nerves Intact, Normal Gait. No: Focal Deficit - Patient Data Lab Results Last 24 hrs: Laboratory Results - last 24 hr 07/07/21 07/07/21 07/07/21 Range/Units 19:25 19:25 19:25 WBC 13.55 H (4.0-11.0) K/uL RBC 5.13 (4.50-5.90) M/uL Hgb 14.6 (13.0-17.0) g/dL Hct 44.4 (38.0-50.0) % MCV 86.5 (80.0-98.0) fL MCH 28.5 (27.0-32.0) pg MCHC 32.9 (31.0-37.0) g/dL RDW Std Deviation 46.3 (28.0-62.0) fl RDW Coeff of Gabby 15 (11.0-15.0) % Plt Count 353 (150-400) K/uL MPV 9.30 (7.40-12.00) fL Neut % (Auto) 76.4 (48.0-80.0) % Lymph % (Auto) 16.2 (16.0-40.0) % [place] % (Auto) 5.7 (0.0-15.0) % Eos % (Auto) 1.5 (0.0-7.0) % Baso % (Auto) 0.2 (0.0-1.5) % Neut # (Auto) 10.4 H (1.4-5.7) K/uL Lymph # (Auto) 2.2 (0.6-2.4) K/uL [place] # (Auto) 0.8 (0.0-0.8) K/uL Eos # (Auto) 0.2 (0.0-0.7) K/uL Baso # (Auto) 0.0 (0.0-0.1) K/uL Nucleated RBC % 0.0 /100WBC Nucleated RBCs # 0 K/uL D-Dimer, Quantitative 0.41 (0.0-0.50) mg/L FEU Sodium 139 (136-148) mmol/L Potassium 4.5 (3.5-5.1) mmol/L Chloride 101 (98-107) mmol/L Carbon Dioxide 29.3 (21.0-32.0) mmol/L BUN 18 (7.0-18.0) mg/dL Creatinine 1.1 (0.8-1.3) mg/dL Est Cr Clr Drug Dosing 98.96 mL/min Estimated GFR (MDRD) > 60.0 ml/min Glucose 96 (74-106) mg/dL Calcium 8.9 (8.5-10.1) mg/dL Total Bilirubin 0.4 (0.2-1.0) mg/dL AST 33 (15-37) IU/L ALT 64 H (14-63) IU/L Alkaline Phosphatase 116 (46-116) U/L Troponin I < 0.050 (0.000-0.056) ng/mL B-Natriuretic Peptide (<100) PG/ML Total Protein 8.0 (6.4-8.2) g/dL Albumin 4.0 (3.4-5.0) g/dL Globulin 4.0 (2.6-4.0) g/dL Albumin/Globulin Ratio 1.0 (0.9-1.6) SARS-CoV-2 RNA (ROXANNE) (NEGATIVE) 07/07/21 07/07/21 Range/Units 19:25 19:59 WBC (4.0-11.0) K/uL RBC (4.50-5.90) M/uL Hgb (13.0-17.0) g/dL Hct (38.0-50.0) % MCV (80.0-98.0) fL MCH (27.0-32.0) pg MCHC (31.0-37.0) g/dL RDW Std Deviation (28.0-62.0) fl RDW Coeff of Gabby (11.0-15.0) % Plt Count (150-400) K/uL MPV (7.40-12.00) fL Neut % (Auto) (48.0-80.0) % Lymph % (Auto) (16.0-40.0) % [place] % (Auto) (0.0-15.0) % Eos % (Auto) (0.0-7.0) % Baso % (Auto) (0.0-1.5) % Neut # (Auto) (1.4-5.7) K/uL Lymph # (Auto) (0.6-2.4) K/uL [place] # (Auto) (0.0-0.8) K/uL Eos # (Auto) (0.0-0.7) K/uL Baso # (Auto) (0.0-0.1) K/uL Nucleated RBC % /100WBC Nucleated RBCs # K/uL D-Dimer, Quantitative (0.0-0.50) mg/L FEU Sodium (136-148) mmol/L Potassium (3.5-5.1) mmol/L Chloride (98-107) mmol/L Carbon Dioxide (21.0-32.0) mmol/L BUN (7.0-18.0) mg/dL Creatinine (0.8-1.3) mg/dL Est Cr Clr Drug Dosing mL/min Estimated GFR (MDRD) ml/min Glucose (74-106) mg/dL Calcium (8.5-10.1) mg/dL Total Bilirubin (0.2-1.0) mg/dL AST (15-37) IU/L ALT (14-63) IU/L Alkaline Phosphatase (46-116) U/L Troponin I (0.000-0.056) ng/mL B-Natriuretic Peptide 6 (<100) PG/ML Total Protein (6.4-8.2) g/dL Albumin (3.4-5.0) g/dL Globulin (2.6-4.0) g/dL Albumin/Globulin Ratio (0.9-1.6) SARS-CoV-2 RNA (ROXANNE) NEGATIVE (NEGATIVE) Result Diagrams: 07/08/21 07:03 07/08/21 07:03 Sepsis Event Note - Evaluation Sepsis Screening Result: No Definite Risk - Focused Exam Vital Signs: Vital Signs Temp Pulse Resp BP Pulse Ox 07/07/21 22:16 36.8 C 78 15 137/85 94 L 07/07/21 19:50 83 137/85 97 07/07/21 19:20 36.7 C 89 20 153/101 H 98 Problem List Initiated/Reviewed/Updated: Yes Orders Last 24hrs: Active Orders 24 hr Category Date Time Status Patient Status [ADT] Routine ADT 07/07/21 20:46 Active Telemetry Monitoring [Cardiac Monitoring] [RC] . Care 07/07/21 21:32 Active DIRECTED Regular Diet [DIET] Diet 07/08/21 Breakfast Active BASIC METABOLIC PANEL,BMP [CHEM] AM Lab 07/08/21 05:11 Ordered CBC WITH AUTO DIFF [HEME] AM Lab 07/08/21 05:11 Ordered TROPONIN I [CHEM] Q6H Lab 07/08/21 01:00 Ordered TROPONIN I [CHEM] Q6H Lab 07/08/21 07:00 Ordered TSH REFLEX TO FREE T4 [CHEM] AM Lab 07/08/21 05:11 Ordered Sodium Chloride 0.9% [Saline Flush] Med 07/07/21 19:38 Active 10 ml FLUSH ASDIRECTED PRN Sodium Chloride 0.9% [Saline Flush] Med 07/07/21 19:38 Active 2.5 ml FLUSH ASDIRECTED PRN lisinopriL [Prinivil] Med 07/08/21 00:15 Ordered 1 dose PO ASDIRECTED Saline Lock Insert [OM.PC] Stat Oth 07/07/21 19:38 Ordered Medication Orders Lisinopril (Lisinopril 5 Mg Tab) mg PO ASDIRECTED JACINTO Sodium Chloride (Sodium Chloride 0.9% 10 Ml Syringe) 10 ml FLUSH ASDIRECTED PRN PRN Reason: Keep Vein Open Last Admin: 07/07/21 20:11 Dose: 10 ml Documented by: FABIOLA Sodium Chloride (Sodium Chloride 0.9% 2.5 Ml Syringe) 2.5 ml FLUSH ASDIRECTED PRN PRN Reason: Keep Vein Open Last Admin: 07/07/21 20:12 Dose: 2.5 ml Documented by: FABIOLA Assessment/Plan Comment:: 40 yo male admitted with chest pain. He ruled out for acute coronary syndrome with serial negative cardiac enzymes. He had no events on telemetry and his chest pain did not return. He was discharged home to have follow up with his primary care provider. He was referred to outpatient cardiac stress. His levothyroxine was refilled as he ran out over a month ago.
[2021-07-08 07:43] LABS: BLOOD UREA NITROGEN,BUN 15 mg/dL (7.0-18.0); CARBON DIOXIDE,CO2 32.3 mmol/L (21.0-32.0); CHLORIDE,CL 102 mmol/L (98-107); GLUCOSE RANDOM 109 mg/dL (74-106); POTASSIUM,K 5.2 mmol/L (3.5-5.1); SODIUM,NA 139 mmol/L (136-148)
== END 2021-07-08 10:43 | disposition home or self-care (01) ==
LOC: MW.ED 19:12 → MW.MS 20:46
PROVIDERS: ADMIT Internal Medicine; ATTEND Internal Medicine
DX: I24.9 Acute ischemic heart disease, unspecified (principal); I10 Essential (primary) hypertension; Z20.822 Contact with and (suspected) exposure to COVID-19; Z79.899 Other long term (current) drug therapy; Z88.0 Allergy status to penicillin
CPT/HCPCS: 36415; 71045; 80048; 80053; 83880; 84439; 84443; 84484; 85025; 85379; 87635; 93005; G0378; 99285-25; U0002